=== PATIENT | male | born 1995 | race Caucasian/White ===

== ENCOUNTER 2022-05-15 11:14 | Emergency (ER) | payer MEDICAID, SELFPAY ==
[2022-05-15 11:17] VITALS: BP 129/73; PULSE 118; RESP 20; TEMP 36.6; O2SAT 100; BMI 22.3
--- NOTE | 2022-05-15 11:52 | ED_ITS ---
HPI - General Adult General Chief complaint: Neck Pain/Injury Stated complaint: swollen lymph nodes Time Seen by Provider: 05/15/22 11:24 Source: patient Mode of arrival: ambulatory History of Present Illness HPI narrative: 26-year-old male with no significant past medical history presenting to the ED complaining of swollen lymph nodes to right neck x2 weeks s/p dental cleaning. Denies areas being painful or growing since onset. Reports mild associated ear clogging. Denies dental pain/injury, sore throat, inability to swallow, ear drainage, hearing loss, cough, fever, SOB Onset (ago): week(s) Related Data Previous Rx's Medication Instructions Recorded amoxicillin 875 mg-potassium 1 tab PO BID 7 days #14 tabs 05/15/22 clavulanate 125 mg tablet Allergies Allergy/AdvReac Type Severity Reaction Status Date / Time No Known Allergies Allergy Unverified 02/06/20 16:55 Review of Systems Review of Systems: Constitutional: No Fever, No Chills, No Fatigue, No Malaise ENT/Mouth: + Ear clogged, No Nasal Congestion, No Sinus Pain, No Hoarseness, No sore throat, No Rhinorrhea, No Swallowing Difficulty Eyes: No Eye Pain, No Swelling, No Redness, No Discharge, No Vision Changes Cardiovascular: No Chest Pain, No SOB, No Edema, No Palpitations Respiratory: No Cough, No Sputum, No Dyspnea Gastrointestinal: No Nausea, No Vomiting, No Diarrhea, No Constipation, No Abdominal pain Genitourinary: No Dysuria, No Urinary Frequency, No Hematuria, No Urgency, No Flank Pain, No Urinary Flow Changes, No Hesitancy Musculoskeletal: No joint pain, No Myalgias, No Joint Swelling Skin: No Skin Lesions, No rash Neuro: No Weakness, No Dizziness, No Headache Yes all other systems are reviewed and are negative Constitutional: Constitutional: Reports as per [facility] Past Medical History Attestation statement: The following information was validated with the patient. Social History Social History Advance Directives: No Physical Exam ED Vital Signs: Vital Signs - 24 hr 05/15/22 11:17 Temperature 97.9 F Pulse Rate 118 H Respiratory Rate 20 Blood Pressure 129/73 Pulse Oximetry 100 Oxygen Delivery Method Room Air BMI result Body Mass Index 22.3 Const General: cooperative, healthy appearing, comfortable and no acute distress Orientation/consciousness: patient oriented x3 Limitations: no limitations HENMT Other: No appreciable dental or gingival abscess/cellulitis Head: Yes normal to inspection and Yes atraumatic Ears: hearing grossly normal bilaterally, TM's normal bilaterally, EAC's normal and mastoids normal General nose exam: Normal external nose present Face and sinus: Yes normal facial exam Mouth: Normal oral and palatal mucosa present Throat: Yes tonsils normal, Yes uvula midline, No peritonsillar mass, Yes posterior oropharynx abnormal (Mild erythema, no exudate), No uvula laterally displaced and No uvular edema Eyes General: appearance normal, both eyes and all related structures EOM: EOMs intact bilaterally Neck Neck: Yes normal visual inspection, Yes no meningeal signs and Yes lymphadenopathy (Right-sided submandibular and posterior cervical) Resp Effort & Inspection: normal respiratory effort and no respiratory distress Auscultation: clear to auscultation bilaterally, no crackles, no rales and no rhonchi Cardio Rate: regular rate Heart sounds: S1 normal heart sound present and S2 normal heart sound present GI Inspection: Yes normal to inspection Skin Rashes: no rashes Wounds: no wounds Neuro General: patient oriented x3, tone normal and no meningeal signs Gait exam (Neuro): Normal gait present Extrem General: Yes normal to inspection Course Course Course Narrative: -1203--rapid strep positive. Will give patient persist of Augmentin and Motrin in the ED -COVID-19/influenza/RSV negative Results discussed with patient including worrisome signs and symptoms and strict return precautions, and when to return to the emergency department. They verbalized understanding and feel safe for discharge at this time. Medications Administered Discontinued Medications Generic Name Dose Route Start Last Admin Trade Name Freq PRN Reason Stop Dose Admin Amoxicillin/Clavulanate Potassium 875 mg 05/15/22 12:02 05/15/22 12:12 Amoxicillin/Potassium Clav 875 Mg Tablet PO 05/15/22 12:03 875 mg ONCE ONE Administration Ibuprofen 600 mg 05/15/22 12:02 05/15/22 12:18 Ibuprofen 600 Mg Tablet PO 05/15/22 12:03 Not Given ONCE ONE Medical Decision Making Medical Decision Making MDM Narrative: 26-year-old male with no significant past medical history presenting to the ED complaining of swollen lymph nodes to right neck x2 weeks s/p dental cleaning. On exam mildly tachycardic likely from anxiety, NAD, nontoxic appearing, submandibular and posterior cervical right-sided lymphadenopathy noted. No evidence of intraoral infection/abscess, no appreciable neck swelling, uvula midline, no stridor, no respiratory distress. Concern for lymphadenopathy vs viral illness. No evidence of [employer] Plan: COVID-19/influenza/RSV testing, rapid strep Differential Diagnosis Differential Diagnoses: The differential diagnosis associated with the presentation includes Admission/Observation Consideration of admission/observation: Escalation of care including admission/observation considered Lab Data MDM Lab Attestation statement: I reviewed the patient's lab results. Labs: Lab Results 05/15/22 05/15/22 Range/Units 11:36 11:36 Influenza Type A (PCR) NEGATIVE (Negative) Influenza Type B (PCR) NEGATIVE (Negative) RSV RNA Qual (PCR) NEGATIVE (Negative) SARS-CoV-2 RNA (RT-PCR) NEGATIVE (Negative) S. pyogenes GrpA VIJI Positive A (Negative) Independent Interpretation I performed an independent interpretation of an: EKG Interpretation: EKG normal sinus rhythm with sinus arrhythmia at a rate of 98. No STEMI. Pr interval 150. QTC 423. Independent Historian Clinical information obtained from an independent historian. History obtained from or confirmed by: Parent Prescription Management I considered prescription management with: Pain Medication and Antibiotic Discharge Plan Discharge Clinical Impression: Strep pharyngitis Patient Disposition: Home, Self-Care Instructions: Strep Throat (ED) Additional Instructions: You have strep throat. Augmentin is antibiotic please take as prescribed. Gargle with warm salt water as needed. Take Tylenol and Motrin. Rest. If symptoms persist or worsen, he develops neck or intraoral swelling, your unable to swallow, fever unresolved with medications return to the emergency depart Follow-up with her doctor Prescriptions: New amoxicillin-pot clavulanate 875-125 mg tablet 1 tab PO BID 7 Days Qty: 14 0RF Referrals: Physician,None [Primary Care Provider] - 3 days
--- NOTE | 2022-05-15 11:53 | ECG_ITS ---
Test Reason : TACKY Blood Pressure : / mmHG Vent. Rate : 098 BPM Atrial Rate : 098 BPM P-R Int : 150 ms QRS Dur : 080 ms QT Int : 332 ms P-R-T Axes : 074 053 049 degrees QTc Int : 423 ms Normal sinus rhythm with sinus arrhythmia Normal ECG No previous ECGs available Referred By: Georgie Salomon Electronically Signed By:Carlos Richardson
[2022-05-15 12:01] LABS: Strep A Nucleic Acid Positive (Negative)
[2022-05-15 12:18] LABS: Influenza A PCR NEGATIVE (Negative); Influenza B PCR NEGATIVE (Negative); Resp Syncy Virus RNA Qual PCR NEGATIVE (Negative); SARS COV2 PCR INHOUSE NEGATIVE (Negative)
--- NOTE | 2022-05-15 12:18 | PC.NURSE ---
patient took ibuprofen at home, provider notified/held medication.
[2022-05-15 13:15] VITALS: BP 122/64; PULSE 69; RESP 18; TEMP 36.7; O2SAT 96
== END 2022-05-15 13:36 | disposition home or self-care (01) ==
PROVIDERS: Physician Assistant; Emergency Provider Student in an Organized Health Care Education/Training Program
DX: J02.0 Streptococcal pharyngitis (principal); I88.9 Nonspecific lymphadenitis, unspecified; R00.0 Tachycardia, unspecified; Z20.822 Contact with and (suspected) exposure to COVID-19
CPT/HCPCS: 0241U; 87651; 93005; 99284